=== PATIENT | male | born 1940 | race Two or more races ===

== ENCOUNTER 2019-01-31 16:20 | Emergency (ER) | payer OTHER, MEDICAID ==
[~2019-01-31] VITALS: Ht 175.3 cm; Wt 113.4 kg
[2019-01-31] MEDS ORDERED: hydrALAZINE HCL 20 MG/ML VL IV ONE ×2 (18:00→21:00)
[2019-01-31] MEDS ORDERED: ONDANSETRON HCL 4 MG/2 ML VIAL IV ONE (18:00)
[2019-01-31] MEDS ORDERED: LORazepam 2MG/ML-1ML VIAL IV ONE (19:15)
[2019-01-31] MEDS ORDERED: cloNIDine HCL 0.1 MG TAB PO ONE (19:15)
[2019-01-31] MEDS ORDERED: FUROSEMIDE 40 MG/4 ML VIAL IV ONE (23:30)
[2019-02-01] MEDS ORDERED: cloNIDine HCL 0.1 MG TAB PO ONE (07:45)
[2019-02-01 08:32] LABS: Chloride 100 mmol/L (98-107); Potassium 3.8 mmol/L (3.5-5.1); Sodium 135 mmol/L (136-145)
[2019-02-01 08:35] LABS: Basophils # (auto) 0.1 uL; Basophils % (auto) 0.3 % (0.0-2.0); Eosinophils # (auto) 0 uL; Eosinophils % (auto) 0.1 % (0.0-7.0); Hematocrit 49.5 % (41.0-53.0); Hemoglobin 16.6 g/dL (13.5-17.5); Lymphocytes # (auto) 2.1 uL; Mean Corpuscular Hemoglobin 30.4 pg (28.0-32.0); Mean Corpuscular Hgb Conc. 33.6 g/dL (32.0-36.0); Mean Corpuscular Volume 90.6 fL (80.0-100.0); Monocytes # (auto) 1.1 uL; Monocytes % (auto) 6.5 % (0.0-12.0); Neutrophils # (auto) 14.3 uL; Neutrophils % (auto) 81.1 % (37.0-80.0); Platelet Count (auto) 202 10^3/uL (140-450); Red Blood Cells 5.47 10^6/uL (4.5-5.90); Red Cell Distribution Width 14.6 % (11.8-14.3); White Blood Cell 17.7 10^3/uL (4.4-10.8)
[2019-02-01 08:49] LABS: Alanine Aminotransferase 86 U/L (16-61); Albumin 3.9 g/dL (3.4-5.0); Alkaline Phosphatase 74 U/L (45-117); Anion Gap 11 (5-15); Aspartate Aminotransferase 51 U/L (15-37); BUN/Creatinine Ratio 12.3; Bilirubin, Total 1.1 mg/dL (0.2-1.0); Blood Urea Nitrogen 15 mg/dL (7-18); Calcium 9.4 mg/dL (8.5-10.1); Carbon Dioxide 24 mmol/L (21-32); GFR African American 74 mL/min; GFR Non-African American 61 mL/min; Glucose 144 mg/dL (74-106); Magnesium 2.7 mg/dL (1.6-2.6); Total Protein 9.1 g/dL (6.4-8.2)
[2019-02-01 11:39] VITALS: BP 105/60
== END 2019-02-01 11:56 | disposition short-term general hospital (02) ==
LOC: EDBD 16:20 → ER 16:20
DX: R09.89 Other specified symptoms and signs involving the circulatory and respiratory systems (principal); I10 Essential (primary) hypertension; R53.1 Weakness; E11.9 Type 2 diabetes mellitus without complications; Z88.0 Allergy status to penicillin
CPT/HCPCS: 36415; 70360; 70450; 80053; 83735; 84484; 85025; 93005; 94761; 96374; 96375; 96376; 99285; J0360; J1940; J2060; J2405

== ENCOUNTER 2025-05-14 17:07 | Emergency (ER) | payer OTHER, MEDICAID ==
[~2025-05-14] VITALS: Ht 172.7 cm; Wt 68.1 kg
[~2025-05-14 17:07] MED LIST: CITA-77 PO; ISOS1TAB29 PO; LEVO25TA6 PO; METO-158 PO; SIMV20TA20 PO; TAMS-35 PO
--- NOTE | 2025-05-14 18:06 | ED.PDOC ---
Edmundo. trauma (HPI) HPI Comments This is an 82 year-old male, with a Hx of Dementia, DM, CAD, and HTN, presents to the ED via EMS with a chief complaint of head trauma s/p fall minutes ago. Per EMS, patient went to get off a couch and fell forward, hitting his forehead. Patient presents with a small laceration to the R eyebrow, bleeding is controll ed with no signs of infection. There are no further complaints or modifying factors at this time. Patient otherwise denies N/V/D, LOC, dizziness, slurred speech, burred vision, or hematemesis. Vitals are stable. Chief Complaint: Fall Injury Time Seen by MD: 17:55 Primary Care Provider: UNK Reviewed notes: Nurses Notes, Pet Counselor Notes, Medications, Allergies Allergies: Coded Allergies: Penicillins (Verified Allergy, Severe, 01/31/19) Home Meds Reported Medications Citalopram Hydrobromide (Citalopram Hydrobromide) 20 Mg Tab, 20 MG PO DAILY for 30 Days, MG 07/29/19 Metoprolol Tartrate (Metoprolol Tartrate) 50 Mg Tab, 50 MG PO BID for 30 Days, MG 07/29/19 Levothyroxine Sodium (Levothyroxine Sodium) 25 Mcg Tab, 75 MCG PO QAM, MCG 07/29/19 Simvastatin (Simvastatin) 20 Mg Tab, 20 MG PO DAILY for 30 Days 07/29/19 Isosorbide Mononitrate (Isosorbide Mononitrate Er) 60 Mg Tab, 60 MG PO QAM for 30 Days, MG 07/29/19 Tamsulosin Hcl (Flomax) 0.4 Mg Cap, 1 CAP PO DAILY, #30 CAP 11 Refills 07/29/19 Information Source: Patient, Emergency Med Personnel Mode of Arrival: EMS Severity: Moderate Timing: Minutes Duration: Since onset Prehospital treatment: Accucheck (151 ), IVF Location of laceration: Head, Other (Right-sided superior forehead) Mechanism: Fall Associated signs and symtoms: Other (Laceration and head injury ) Past Medical History PAST MEDICAL HISTORY: CAD, Dementia, DM, HTN, Thyroid Surgical History: Unobtainable Family History Family History: Unobtainable Social History Smoker: Unobtainable Alcohol: Unobtainable Drugs: Unobtainable Lives In: Home Constitutional: denies: chills, diaphoresis, fatigue, fever, malaise, sweats, weakness, others EENTM: denies: blurred vision, double vision, ear bleeding, ear discharge, ear drainage, ear pain, ear ringing, eye pain, eye redness, hearing loss, mouth pain, mouth swelling, nasal discharge, nose bleeding, nose congestion, nose pain, photophobia, tearing, throat pain, throat swelling, voice changes, others Respiratory: denies: cough, hemoptysis, orthopnea, SOB at rest, shortness of breath, SOB with excertion, stridor, wheezing, others Cardiovascular: denies: chest pain, dizzy spells, diaphoresis, Dyspnea on exertion, edema, irregular heart beat, left arm pain, lightheadedness, palpitations, PND, syncope, others Gastrointestinal: denies: abdomen distended, abdominal pain, blood streaked bowels, constipated, diarrhea, dysphagia, difficulty swallowing, hematemesis, melena, nausea, poor appetite, poor fluid intake, rectal bleeding, rectal pain, vomiting, others Genitourinary: denies: burning, dysuria, flank pain, frequency, hematuria, incontinence, penile discharge, penile sore, pain, testicle pain, testicle swelling, urgency, others Neurological: reports: others (head trauma s/p fall ); denies: dizziness, fainting, headache, left sided numbness, left sided weakness, numbness, paresthesia, pre-existing deficit, right sided numbness, right sided weakness, seizure, speech problems, tingling, tremors, weakness Musculoskeletal: denies: back pain, gout, joint pain, joint swelling, muscle pain, muscle stiffness, neck pain, others Integumetry: reports: laceration; denies: bruises, change in color, change in hair/nails, dryness, lesions, lumps, rash, wounds, others Allergic/Immunocompromised: denies: Difficulty Healing, Frequent Infections, H marleni, Itching, others Hematologic/Lymphatic: denies: anemia, blood clots, easy bleeding, easy bruising, swollen glands, others Endocrine: denies: excessive hunger, excessive sweating, excessive thirst, excessive urination, flushing, intolerance to cold, intolerance to heat, unexplained weight gain, unexplained weight loss, others Psychiatric: denies: anxiety, bipolar disorder, depression, hopeless, panic disorder, schizophrenia, sleepless, suicidal, others All Other Systems: Reviewed and Negative Physical Exam General Appearance: No Apparent Distress (Patient did not appear to be in distress at time of evaluation.), Normal HEENT: Head (Patient reveals a 2 cm shallow laceration to the lateral aspect of the superior right eyebrow. No active bleed. No skull depressions or deformities.), Normal ENT Inspection, Pharynx Normal, TMs Normal Neck: Full Range of Motion, Non-Tender, Normal, Normal Inspection Respiratory: Chest Non-Tender, Lungs Clear, No Accessory Muscle Use, No Respiratory Distress, Normal Breath Sounds Cardiovascular: No Edema, No JVD, No Murmur, No Gallop, Normal Peripheral Pulses, Regular Rate/Rhythm Breast Exam: Deferred Gastrointestinal: No Organomegaly, Non Tender, No Pulsatile Mass, Normal Bowel Sounds, Soft Genitalia: Deferred Pelvic: Deferred Rectal: Deferred Extremities: Normal capillary refill, No pedal edema Neurologic: Alert Cerebellar Function: NOT DONE Reflexes: NOT DONE Skin: Dry, Normal Color, Warm Lymphatic: No Adenopathy Was a procedure done? Was a procedure done?: Yes Sedation Sedation?: No Other Procedure Notes Dermabond and Steri-Strips utilized to close the superficial right-sided superior forehead laceration. Minimal blood loss. Patient tolerated procedure well. Differential Diagnosis Multiple Trauma: Closed Head Injury, Laceration, Other (Subarachnoid hemorrhage, subdural hematoma, skull fracture, sepsis, electrolyte abnormality) X-Ray, Labs, Meds, VS Vital Signs Date Time Temp Pulse Resp B/P (MAP) Pulse Ox O2 Delivery O2 Flow Rate FiO2 05/14/25 19:36 78 20 97 Room Air* 0 21 05/14/25 19:33 98.1 80 20 121/78 (92) 97 98.1 05/14/25 18:59 85 18 135/86 (102) 97 05/14/25 18:40 18 98 Room Air* 0 21 05/14/25 17:26 97.8 92 24 152/83 98 97.8 Lab Test 05/14/25 19:38 05/14/25 18:46 Range/Units Troponin I High Sensitivity 22 21 </=54 ng/L White Blood Count 10.6 4.4-10.8 10^3/uL Red Blood Count 5.13 4.5-5.90 10^6/uL Hemoglobin 15.6 13.5-17.5 g/dL Hematocrit 45.6 41.0-53.0 % Mean Corpuscular Volume 88.9 80.0-100.0 fL Mean Corpuscular Hemoglobin 30.5 28.0-32.0 pg Mean Corpuscular Hemoglobin Concent 34.3 32.0-36.0 g/dL Red Cell Distribution Width 14.7 H 11.8-14.3 % Platelet Count 145 140-450 10^3/uL Mean Platelet Volume 7.6 6.9-10.8 fL Neutrophils (%) (Auto) 75.2 37.0-80.0 % Lymphocytes (%) (Auto) 15.0 10.0-50.0 % Monocytes (%) (Auto) 7.3 0.0-12.0 % Eosinophils (%) (Auto) 1.8 0.0-7.0 % Basophils (%) (Auto) 0.7 0.0-2.0 % Neutrophils # (Auto) 8.0 1.6-8.6 10 ^3/uL Lymphocytes # (Auto) 1.6 0.4-5.4 10 ^3/uL Monocytes # (Auto) 0.8 0-1.3 10 ^3/uL Eosinophils # (Auto) 0.2 0-0.8 10 ^3/uL Basophils # (Auto) 0.1 0-0.2 10 ^3/uL Nucleated Red Blood Cells 0.2 % Sodium Level 143 136-145 mmol/L Potassium Level 4.0 3.5-5.1 mmol/L Chloride Level 109 H 98-107 mmol/L Carbon Dioxide Level 23 20-31 mmol/L Anion Gap 11 5-15 Blood Urea Nitrogen 13 9-23 mg/dL Creatinine 0.94 0.700-1.30 mg/dL Glomerular Filtration Rate Calc 80 >90 mL/min BUN/Creatinine Ratio 13.8 10.0-20.0 Serum Glucose 114 H 74-106 mg/dL Lactic Acid Level 1.4 0.4-2.0 mmol/L Calcium Level 9.2 8.7-10.4 mg/dL X-Ray, Labs, Meds, VS Comment All studies performed in the ED were evaluated by me personally. Serum studies were unremarkable for any systemic concerns. CT of the head was unremarkable for any intracranial concerns or skull fracture. Patient sustained a laceration to the scalp due to a slip and follow up. Advised pain medication as needed. Images Reviewed?: Images reviewed and evaluated by me Time of 1ST Reevaluation: 21:05 Reevaluation 1ST: Improved Consultation: PCP Patient Education/Counseling: Diagnosis, Treatment Family Education/Counseling: Diagnosis, Treatment, No Family Present Departure 1 Departure Time of Disposition: 21:07 Impression: Primary Impression: Head trauma Additional Impression: Facial laceration Disposition: HOME / SELF CARE / HOMELESS Condition: Stable Additional Instructions: Advised patient utilize Tylenol and or Motrin as needed for pain relief. Antibiotics as directed until completion.. e-Prescriptions Acetaminophen (Acetaminophen) 500 Mg Tab 500 MG PO Q4HP PRN, #30 TAB Prov: CRESCENCIO FRENCH PAC 05/14/25 Cephalexin (KEFLEX CAPSULE) 250 Mg Cp 1 CAP PO QID for 7 Days, #28 CAP Prov: CRESCENCIO FRENCH PAC 05/14/25 Discharged With: Self, Relative Critical Care Note Critical Care Time?: No Stability Stability form required: No Heart Score Heart Score: Heart Score Response (Comments) Value History N/A 0 EKG N/A 0 Age N/A 0 Risk Factors N/A 0 Troponin N/A 0 Total 0 I personally scribed for CRESCENCIO FRENCH PAC ([email or web address]) on 05/14/25 at 18:06. Electronically submitted by Amy Tracy ([email or web address]). I personally scribed for CRESCENCIO FRENCH PAC ([email or web address]) on 05/14/25 at 18:07. Electronically submitted by Amy Tracy ([email or web address]). I personally scribed for CRESCENCIO FRENCH PAC ([email or web address]) on 05/14/25 at 18:09. Electronically submitted by Amy Tracy ([email or web address]). CRESCENCIO FRENCH PAC May 14, 2025 18:06
[2025-05-14 18:40] VITALS: RESP 18; O2SAT 98
[2025-05-14 19:00] LABS: Hematocrit 45.6 % (41.0-53.0); Hemoglobin 15.6 g/dL (13.5-17.5); Mean Corpuscular Hemoglobin 30.5 pg (28.0-32.0); Mean Corpuscular Volume 88.9 fL (80.0-100.0); Nucleated Red Blood Cells % 0.2 %
[2025-05-14 19:09] LABS: Potassium 4.0 mmol/L (3.5-5.1); Sodium 143 mmol/L (136-145)
[2025-05-14 19:10] LABS: Anion Gap 11 (5-15); Carbon Dioxide 23 mmol/L (20-31)
[2025-05-14 19:11] LABS: Calcium 9.2 mg/dL (8.7-10.4)
[2025-05-14 19:15] LABS: BUN/Creatinine Ratio 13.8 (10.0-20.0); Blood Urea Nitrogen 13 mg/dL (9-23)
[2025-05-14 19:17] LABS: Chloride 109 mmol/L (98-107); Glucose 114 mg/dL (74-106)
[2025-05-14 19:33] VITALS: BP 121/78; TEMP 98.1
[2025-05-14 19:36] VITALS: PULSE 78; RESP 20; O2SAT 97
--- NOTE | 2025-05-14 20:05 | DVH ---
CLINICAL HISTORY: Fall/right-sided forehead trauma TECHNIQUE: Helical imaging carried out from skull base to vertex without intravenous contrast. This e xam was performed according to our departmental dose optimization program. Up-to-date CT equipment an d radiation dose reduction techniques are utilized as appropriate. 55.74 CTDIVol: 55.74 mGy DLP: 1015.02 mGy-cm WID: COMPARISON: None FINDINGS: Generalized cerebral volume loss with concordant prominence of the subarachnoid spaces and ventricles . Moderate patchy low attenuation in the cerebral white matter consistent with nonspecific white [place] er disease. Tiny chronic lacunar infarcts in the bilateral basal ganglia. Small chronic lacunar infar cts in the bilateral thalami. There is no midline shift or mass effect. The [place] white matter interfaces are maintained. The basal cisterns are patent. There is no evidence of acute intracranial hemorrhage or extra-axial fluid lynda ection. Partially empty sella. There is irregularity and fluid secretions in the expected location of the sphenoid sinus. There is paranasal sinus mucosal thickening. The mastoid air cells are well-aera rm. IMPRESSION: 1. No acute intracranial abnormality. 2. General cerebral volume loss and moderate chronic microvascular ischemic change. 3. 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 4. Irregularity and fluid secretions in the expected location of the sphenoid sinus. Correlate if the re has been any prior surgery of the sella or sphenoid sinus. If there has been no prior surgery in this location or prior skull base imaging performed, consider obtaining MRI of the brain (skull base protocol) with contrast on a nonemergent / outpatient basis if clinically indicated.
[2025-05-14] MEDS ORDERED: CEPH250C PO (21:09)
[2025-05-14] MEDS ORDERED: ACET500T58 PO (21:09)
== END 2025-05-14 21:57 | disposition home or self-care (01) ==
LOC: ER 17:07 → EDBD 17:07 → EDUNIT# 17:07 → ER 21:57
DX: S01.111A Laceration without foreign body of right eyelid and periocular area, initial encounter (principal); S01.81XA Laceration without foreign body of other part of head, initial encounter; I10 Essential (primary) hypertension; E11.9 Type 2 diabetes mellitus without complications; E03.9 Hypothyroidism, unspecified; F03.90 Unspecified dementia, unspecified severity, without behavioral disturbance, psychotic disturbance, mood disturbance, and anxiety; F17.200 Nicotine dependence, unspecified, uncomplicated; Z79.899 Other long term (current) drug therapy; Z86.73 Personal history of transient ischemic attack (TIA), and cerebral infarction without residual deficits; Z88.0 Allergy status to penicillin; W22.03XA Walked into furniture, initial encounter; Y93.89 Activity, other specified; Y92.89 Other specified places as the place of occurrence of the external cause; Y99.8 Other external cause status
CPT/HCPCS: 12011; 36415; 70450; 80048; 82947; 83605; 84484; 85025